=== PATIENT | male | born 1980 | race Caucasian/White ===

== ENCOUNTER 2020-03-05 04:08 | Emergency (ER) | payer OTHER, SELFPAY ==
[2020-03-05 04:17] VITALS: BP 148/93; PULSE 98; RESP 16; TEMP 36.8; O2SAT 97
--- NOTE | 2020-03-05 04:58 | ED.GENADULT ---
HPI - General Adult General Chief complaint: Unspecified Stated complaint: multiple c/os Time Seen by Provider: 03/05/20 04:43 History of Present Illness HPI narrative: Patient is a 39-year-old gentleman who presents the emergency department with chief complaint of feeling anxious. Patient reports that he has had spasms in his jaw and his arms have been spasming up the patient says he was reading stuff on the Internet and was scared that he had lockjaw. Patient does report that he has had tetanus immunizations before in the past and reports no tetanus prone injuries and denies any opisthotonic. The patient does report that he has been under immense amount of stress lately and he has had a friend recently. Related Data Allergies Allergy/AdvReac Type Severity Reaction Status Date / Time No Known Allergies Allergy Verified 03/05/20 04:24 Review of Systems Review of Systems: Narrative: CONSTITUTIONAL: Denies fever, chills, or sweats. EYES: Denies visual changes, redness, or discharge. ENT: Denies rhinorrhea, congestion, sore throat, or otalgia. CARDIOVASCULAR: Denies chest pain, palpitations, or edema. RESPIRATORY: Denies cough or dyspnea. GASTROINTESTINAL: Denies abdominal pain, nausea, vomiting, or diarrhea. GENITOURINARY: Denies dysuria or hematuria. SKIN: Denies rash or itching. MUSCULOSKELETAL: Denies back pain, joint pain, or myalgia. NEUROLOGIC: Denies headache, numbness, or weakness. PSYCHIATRIC: Denies anxiety or depression. A 10 system review of systems was completed on the patient and is negative except for what is stated in the HPI. Nursing and ancillary documentation was reviewed. PMFSH Comments Patient has no significant past medical history Social history the patient denies illicit drug use, does report to medicinal marijuana use Exam Narrative: Exam Narrative: GENERAL: Well-appearing, well-nourished, and in no acute distress. HEAD: Normocephalic, atraumatic. EYES: PERRLA and EOMI. ENT: Nares clear, no rhinorrhea or epistaxis. Mucous membranes moist. NECK: Supple. CHEST: Clear to auscultation. No respiratory distress. HEART: Regular rate and rhythm. No murmur heard. Normal peripheral pulses. ABDOMEN: Soft, nontender, nondistended, normal active bowel sounds. EXTREMITIES: Normal range of motion. No edema. SKIN: Warm, dry, no rash. NEURO: No focal deficits. Alert and oriented x3. PSYCH: Normal mood and affect. Course Vital Signs Vital signs: Vital Signs Temperature 36.8 C 03/05/20 04:17 Pulse Rate 98 03/05/20 04:17 Respiratory Rate 16 03/05/20 04:17 Blood Pressure 148/93 H 03/05/20 04:17 Pulse Oximetry 97 03/05/20 04:17 Temperature 36.8 C 03/05/20 04:17 Pulse Rate 98 03/05/20 04:17 Respiratory Rate 16 03/05/20 04:17 Blood Pressure 148/93 H 03/05/20 04:17 Pulse Oximetry 97 03/05/20 04:17 Medical Decision Making Vital Signs Vital Signs: Vital Signs Temperature 36.8 C 03/05/20 04:17 Pulse Rate 98 03/05/20 04:17 Respiratory Rate 16 03/05/20 04:17 Blood Pressure 148/93 H 03/05/20 04:17 Pulse Oximetry 97 03/05/20 04:17 Temperature 36.8 C 03/05/20 04:17 Pulse Rate 98 03/05/20 04:17 Respiratory Rate 16 03/05/20 04:17 Blood Pressure 148/93 H 03/05/20 04:17 Pulse Oximetry 97 03/05/20 04:17 Discharge Plan Discharge Clinical Impression: Anxiety Patient Disposition: Home, Self-Care Condition: Stable Instructions: Antibiotic Form, Anxiety (ED) Prescriptions: New hydroxyzine HCl 50 mg tablet 50 mg PO BID PRN (Reason: anxiety) Qty: 20 RF: 0 Follow-up/Referrals: PHYSICIAN,[facility] ASSISTANT [Primary Care Provider] - Cristian Pond MD [Physician] - 1 Week Time of Disposition: 05:08
[2020-03-05] MEDS: hydrOXYzine pamoate 25 MG CAPSULE 50 MG PO (05:14)
[2020-03-05 06:27] VITALS: BP 119/81; PULSE 73; RESP 16; TEMP 36.7; O2SAT 98
== END 2020-03-05 06:29 | disposition home or self-care (01) ==
PROVIDERS: Emergency Provider Emergency Medicine
DX: F41.9 Anxiety disorder, unspecified (principal)
CPT/HCPCS: 99283; A9270

== ENCOUNTER 2020-05-07 10:59 | Emergency (ER) | payer OTHER, SELFPAY ==
--- NOTE | ~2020-05-07 | XR_ITS ---
EXAMINATION: XR chest 1V DATE: 05/07/2020 14:54 INDICATION: Weakness. TECHNIQUE: A single frontal view of the chest was obtained. COMPARISON: None. FINDINGS: The chest demonstrates clear lungs without pneumonia, pleural effusion, or pneumothorax. Th e heart size is normal. IMPRESSION: 1. No acute cardiopulmonary disease. Reviewed, dictated and finalized at location A. R MACHINE
--- NOTE | ~2020-05-07 | CT_ITS ---
EXAMINATION: CT brain wo con EXAM DATE: 05/07/2020 14:51 INDICATION: Tremors, headache. TECHNIQUE: Spiral CT of the head was performed without contrast. Axial, coronal and sagittal images were reviewed. The dose-length product (DLP) for this examination was 605.33 mGy-cm. The exposure w as tailored according to patient size, and iterative reconstruction (ASIR) was used as additional dos e reduction technique. There is no prior study for comparison. FINDINGS: There is no acute intraparenchymal hemorrhage. No evidence of intraparenchymal brain mass lesion. No evidence of acute infarction. There is no mass effect or midline shift. The ventricles are normal in size. There are no extra-axial collections. There are no acute calvarial fractures. T he orbits are unremarkable. Soft tissue is unremarkable. The visualized sinuses and mastoid air opal ls are well aerated. IMPRESSION: 1. Unremarkable head CT examination. Reviewed, dictated and finalized at location A. ICAL BIOSTATISTICS DIRECTOR
[2020-05-07 11:27] VITALS: BP 140/94; PULSE 90; RESP 18; TEMP 37.2; O2SAT 99
[2020-05-07 13:00] VITALS: BP 151/100; PULSE 82; RESP 18; O2SAT 99
[2020-05-07 14:20] VITALS: BP 132/78; PULSE 70; RESP 18; O2SAT 99
--- NOTE | 2020-05-07 14:39 | ED.GENADULT ---
HPI - General Adult General Chief complaint: Unspecified Stated complaint: something neurological Time Seen by Provider: 05/07/20 14:20 Source: patient Mode of arrival: ambulatory Limitations: no limitations History of Present Illness HPI narrative: This patient is a 39 year old male who presents for evaluation of multiple symptoms. He states since February he has had progressive symptoms. His symptoms include feeling tremulous, anxious. He states he is unable to sleep more than a few hours. He also reports he has poor appetite. He also reports intermittent abdominal pain cramping and diarrhea. Last month he was evaluated by GI in [place] with [place] scan and he states it was normal. He has also been seeing his PCP Dr. Carrion who has started him on psych medication. He has only been on the medications for 1 week. He states he still doesn't feel right. Onset (ago): month(s) (2) Related Data Home Medications Medication Instructions Recorded Confirmed buspirone 10 mg PO DAILY 05/07/20 05/07/20 citalopram 20 mg PO DAILY 05/07/20 05/07/20 ergocalciferol (vitamin D2) 05/07/20 trazodone 50 mg PO DAILY 05/07/20 05/07/20 zolpidem 10 mg PO DAILY 05/07/20 05/07/20 Allergies Allergy/AdvReac Type Severity Reaction Status Date / Time No Known Allergies Allergy Verified 05/07/20 11:34 Review of Systems Review of Systems: All systems reviewed & are unremarkable except as noted in HPI and below Constitutional: Constitutional: Reports anorexia and Reports difficulty sleeping Cardiovascular: Cardiovascular: Reports diaphoresis and Reports rapid heart rate Respiratory: Respiratory: Denies cough and Denies hemoptysis Gastrointestinal: Gastrointestinal: Reports diarrhea and Reports nausea Neurologic: Reports tremor(s) Psychiatric: Psychiatric: Reports abnormal sleep pattern, Reports anxiety and Reports irritability PMFSH Past Medical History Medical History (Updated 05/07/20 @ 17:37 by Lia Sanchez MD) Anxiety Surgical History Surgical History (Updated 05/07/20 @ 15:05 by Lia Sanchez MD) No pertinent past surgical history Social History Social History (Updated 05/07/20 @ 15:05 by Lia Sanchez MD) Smoking status: Never smoker Substance use type: marijuana Gender identity (if verbalized by the patient): Male Exam Narrative: Exam Narrative: GENERAL: Well-appearing, well-nourished, and in no acute distress. HEAD: Normocephalic, atraumatic EYES: PERRLA and EOMI, conjunctiva clear without discharge EARS: TM's clear bilaterally without erythema or dullness NOSE: Nares clear, no rhinorrhea or epistaxis THROAT:Mucous membranes moist, Oropharynx normal without erythema, exudate, peritonsillar swelling or fluctuance NECK: Supple, without lymphadenopathy or mass RESPIRATORY: No respiratory distress, Airway patent, Respirations non-labored, Clear to auscultation without rales, rhonchi or wheeze HEART: Regular rate and rhythm. No murmur heard. Normal peripheral pulses. ABDOMEN: Soft, nontender, nondistended, normal active bowel sounds. No masses. No rebound or guarding, No organomegaly. EXTREMITIES: No edema, normal strength with full range of motion. SKIN: Warm, dry, normal color without rash NEURO: Alert and oriented x3. CN 2-12 grossly intact. No focal deficits. PSYCH: Normal mood and affect. Course Reevaluation(s) Reevaluation #1: I discussed labs with patient. He states he feels better. He reports his drug screen is positive for benzos because his girlfriend gave him one. He reports that helped but understands it is potentially addictive so his PCP did not want to prescribed. I discussed he will need to allow his current medication time to work. Date: 05/07/20 Time: 17:35 Vital Signs Vital signs: Vital Signs Temperature 99.0 F 05/07/20 11:27 Pulse Rate 90 05/07/20 11:27 Respiratory Rate 18 05/07/20 11:27 Blood Pressure 140/94 H 05/07/20 11:27 Pulse Oximetry 99
--- NOTE | 2020-05-07 15:06 | ECG_ITS ---
Measurements Intervals [place] Rate: 68 P: 76 MS: 163 QRS: 72 QRSD: 97 T: 62 QT: 375 QTc: 399 Interpretive Statements SINUS RHYTHM NORMAL ECG Electronically Signed On 05-07-2020 16:45:57 [employer]CH[employer] by Mitchell Beltrán D.O.
[2020-05-07 15:42] LABS: Basophils Percent Auto 0.3 % (0.2-1.2); Eosinophils Percent Auto 0.3 % (0-4.4); Hematocrit 46.1 % (42.0-52.0); Hemoglobin 15.7 g/dL (14.0-18.0); Immature Granulocyte Absolute 0.04 K/mm3 (0.00-0.031); Immature Granulocyte Percent A 0.3 % (0-0.5); Lymphocytes Absolute Auto 1.77 K/mm3 (0.9-3.2); Lymphocytes Percent Auto 15.1 % (18.3-44.2); Mean Corpuscular HGB Conc 34.1 g/dl (32-36); Mean Corpuscular Hemoglobin 28.6 pg (26-34); Mean Corpuscular Volume 84.1 fl (80-100); Mean Platelet Volume 9.5 fl (7.4-10.4); Monocytes Absolute Auto 1.1 K/mm3 (0.1-0.6); Monocytes Percent Auto 9.3 % (2.6-8.5); Neutrophils Absolute Auto 8.7 K/mm3 (1.3-6.7); Neutrophils Percent Auto 74.7 % (45.5-73.1); Platelet Count Result 281 k/mm3 (150-375); Red Blood Count 5.48 M/mm3 (4.6-6.20); Red Cell Distribution Width 12.6 % (11.5-14.5); White Blood Count 11.7 K/mm3 (4.5-10.0)
[2020-05-07 15:59] LABS: Ethanol < 10 mg/dL (<10)
[2020-05-07 16:45] LABS: Add Urine Microscopic? YES; Appearance Urine Clear (Clear); Bacteria Urine Trace /hpf; Bilirubin Urine Negative (Negative); Blood Urine Negative (Negative); Calcium Oxalate Crystals Urine Present /hpf; Color Urine Yellow (Yellow); Glucose Urine UA Negative (Negative); Ketones Urine Trace mg/dL (Negative); Leukocyte Esterase Ur Negative LEU/UL (Negative); Nitrate Urine Negative (Negative); Protein Urine 1+ mg/dL (Negative); RBC Urine 0-2 /hpf (0-2); Specific Grav Ur 1.024 (1.001-1.035); Squamous Epithelial Cell Urine Rare /hpf (Few); Urobilinogen Urine Negative mg/dL (<2.0); WBC Urine 0-3 /hpf
[2020-05-07 16:46] LABS: Mucus Urine Heavy /lpf
[2020-05-07 16:48] VITALS: BP 138/80; PULSE 78; RESP 18; O2SAT 99
[2020-05-07 16:59] LABS: Amphetamine Screen Urine Negative (Negative); Barbiturate Screen Urine Negative (Negative); Benzodiazepines Screen Urine Positive (Negative); Cannabinoid Screen Urine Positive (Negative); Cocaine Screen Urine Negative (Negative); Methadone Screen Urine Negative (Negative); Opiate Screen Urine Negative (Negative); Phencyclidine Screen Urine Negative (Negative)
== END 2020-05-07 18:22 | disposition home or self-care (01) ==
PROVIDERS: Emergency Provider General Practice; PCP Internal Medicine
DX: F41.9 Anxiety disorder, unspecified (principal)
CPT/HCPCS: 36415; 70450; 71045; 80307; 81001; 84443; 85025; 93005; 99284